=== PATIENT | female | born 1955 | race Caucasian/White ===

== ENCOUNTER → 2016-12-14 | Outpatient (CLI) | payer BC ==
--- NOTE | 2016-12-17 11:49 | MM ---
Reason for exam: screening (asymptomatic). Last mammogram was performed 1 year ago. History: Patient is postmenopausal. Family history of breast cancer in paternal cousin at age 49. Took hormonal contraceptives for 10 years beginning at age 25. Physical Findings: A clinical breast exam by your physician is recommended on an annual basis and results should be correlated with mammographic findings. MG 3D Screening Mammo W/Cad Bilateral CC and MLO view(s) were taken. Prior study comparison: December 17, 2015, bilateral MG screening mammo w CAD. October 10, 2014, bilateral MG screening mammo w CAD. The breast tissue is heterogeneously dense. This may lower the sensitivity of mammography. There is no discrete abnormality. No significant changes when compared with prior studies. ASSESSMENT: Negative, BI-RAD 1 RECOMMENDATION: Routine screening mammogram of both breasts in 1 year.
== END | disposition home or self-care (01) ==
LOC: RADMAMWWP 08:34
PROVIDERS: ATTEND Obstetrics & Gynecology
DX: Z12.31 Encounter for screening mammogram for malignant neoplasm of breast (principal)
CPT/HCPCS: 77063; G0202

== ENCOUNTER 2017-11-17 07:46 | Day surgery (SDC) | payer BC ==
[2017-11-15 09:27] VITALS: BMI 29.9
[~2017-11-17 07:46] MED LIST: LACTATED RINGERS 1,000 ML IV SCH; LIDOCAINE 1% INJ 10MG/ML (20 ML MDV) ONE; PROPOFOL 10 MG/ML 20 ML VIAL IV ONE
[2017-11-17 08:21] VITALS: RESP 16; TEMP 96.9
[2017-11-17] MEDS ORDERED: LIDOCAINE 1% 20 ML VIAL (10MG/ML) FOR IV START INTRADERMA ONE (08:27)
--- NOTE | 2017-11-17 09:30 | P.PCN ---
Date of Procedure: 11/17/17 Procedure(s) Performed: BRIEF HISTORY: Patient is a 62-year-old pleasant white female, scheduled for an elective colonoscopy as a part of screening for colorectal neoplasia. PROCEDURE PERFORMED: Colonoscopy. PREOPERATIVE DIAGNOSIS: Screening for colon cancer. IV sedation per Anesthesia. PROCEDURE: After informed consent was obtained, the patient, was brought into the endoscopy unit. IV sedation was administered by Anesthesia under continuous monitoring. Digital rectal examination was normal. Initially the Olympus CF- 160 flexible video colonoscope was then inserted in the rectum, gradually advanced into the cecum without any difficulty. Careful examination was performed as the scope was gradually being withdrawn. Ileocecal valve and the appendiceal orifice were visualized and appeared normal. Prep was excellent. Mucosa of the cecum, ascending colon, transverse colon, descending colon, sigmoid colon, and rectum appeared normal. Retroflexion was performed in the rectum and no lesions were seen. The patient tolerated the procedure well. IMPRESSION: Normal-appearing colon from rectum to cecum with no evidence of colorectal neoplasia. RECOMMENDATIONS: Findings of this examination were discussed with the patient as well as her family. She was advised to have a repeat screening colonoscopy in 10 years.
[2017-11-17 09:39] VITALS: BP 104/70
[2017-11-17 10:03] VITALS: PULSE 54
== END 2017-11-17 10:22 | disposition home or self-care (01) ==
LOC: ORWHC2ENDO 07:46
PROVIDERS: ATTEND Internal Medicine Gastroenterology
DX: Z12.11 Encounter for screening for malignant neoplasm of colon (principal); K21.9 Gastro-esophageal reflux disease without esophagitis; Z88.0 Allergy status to penicillin; Z79.899 Other long term (current) drug therapy; Z87.891 Personal history of nicotine dependence
CPT/HCPCS: G0121; J2001; J2704

== ENCOUNTER → 2017-12-22 | Outpatient (CLI) | payer BC ==
--- NOTE | 2017-12-23 14:49 | MM ---
Reason for exam: screening (asymptomatic). Last mammogram was performed 1 year ago. History: Patient is postmenopausal. Family history of breast cancer in paternal cousin at age 49. Took hormonal contraceptives for 10 years beginning at age 25. Physical Findings: A clinical breast exam by your physician is recommended on an annual basis and results should be correlated with mammographic findings. MG 3D Screening Mammo W/Cad Bilateral CC and MLO view(s) were taken. Prior study comparison: December 14, 2016, bilateral MG 3d screening mammo w/cad. December 17, 2015, bilateral MG screening mammo w CAD. The breast tissue is heterogeneously dense. This may lower the sensitivity of mammography. There is no discrete abnormality. No significant changes when compared with prior studies. ASSESSMENT: Negative, BI-RAD 1 RECOMMENDATION: Routine screening mammogram of both breasts in 1 year.
== END | disposition home or self-care (01) ==
LOC: RADMAMWWP 14:08
PROVIDERS: ATTEND Obstetrics & Gynecology
DX: Z12.31 Encounter for screening mammogram for malignant neoplasm of breast (principal); Z78.0 Asymptomatic menopausal state
CPT/HCPCS: 77063; 77067

== ENCOUNTER → 2017-12-28 | Outpatient (CLI) | payer BC ==
--- NOTE | 2017-12-28 16:36 | BD ---
EXAMINATION TYPE: Axial Bone Density DATE OF EXAM: 12/28/2017 COMPARISON: NONE CLINICAL HISTORY: Height: 62.5 Weight: 173.5 FRAX RISK QUESTIONS: Alcohol (3 or more units per day): no Family History (Parent hip fracture): no Glucocorticoids (More than 3mos): no (Ex: prednisone, prednisolone, methylprednisolone, dexamethasone, and hydrocortisone). History of Fracture in Adulthood: yes Secondary Osteoporosis: 1. Type 1 Diabetes: no 2. Hyperthyroidism: no 3. Menopause before 45: no 4. Malnutrition: no 5. Chronic liver disease: no Rheumatoid Arthritis: no Current Tobacco Use: no RISK FACTORS HISTORY OF: History of Wrist Fracture: bilateral wrist When: 2016 Family History of Osteoporosis: no Active: yes Diet low in dairy products/other sources of calcium: no Postmenopausal woman: age 59 MEDICATIONS: prevacid, flonase as needed Additional History: EXAM MEASUREMENTS: Bone mineral densitometry was performed using the Jamplify System. Bone mineral density as measured about the Lumbar spine is: ----- L1-L4(G/cm2): 1.174 T Score Values are as follows: ----- L2: -0.2 ----- L3: 0.3 ----- L4: -0.2 ----- L1-L4: -0.1 Bone mineral density has: decreased -0.5 % since study of: 06.04.2014 Bone mineral density about the R hip (g/cm2): 0.962 Bone mineral density about the L hip (g/cm2): 0.821 T Score values are as follows: -----R Neck: -0.5 -----L Neck: -1.6 -----R Total: -0.3 -----L Total: -1.0 Bone mineral density has: decreased -3.3 % since study of: 06.04.2014 IMPRESSION: Osteopenia (T Score between -2.5 and -1). There is slightly increased risk of fracture and the patient may be considered for treatment. Re-Screen 2-5 years. NOTE: T-SCORE=SD OF THE YOUNG ADULT MEAN.
== END | disposition home or self-care (01) ==
LOC: RADBDWWP 12:20
PROVIDERS: ATTEND Obstetrics & Gynecology
DX: Z13.820 Encounter for screening for osteoporosis (principal); M85.80 Other specified disorders of bone density and structure, unspecified site; Z78.0 Asymptomatic menopausal state
CPT/HCPCS: 77080

== ENCOUNTER → 2018-07-25 | Outpatient (CLI) | payer BC ==
[2018-07-25 15:12] LABS: Appearance,Urine Clear (Clear); Bilirubin,Urine Negative (Negative); Blood,Urine Negative (Negative); Color,Urine Light Yellow; Glucose,Urine (UA) Negative (Negative); Ketones,Urine Negative (Negative); Leukocyte Esterase,Urine Negative (Negative); Nitrite,Urine Negative (Negative); Protein,Urine Negative (Negative); Specific Gravity,Urine 1.008 (1.001-1.035); Urobilinogen,Urine <2.0 mg/dL (<2.0)
[2018-07-25 15:33] LABS: HCT 40.3 % (34.0-46.0); HGB 12.8 gm/dL (11.4-16.0); MCH 29.2 pg (25.0-35.0); MCHC 31.8 g/dL (31.0-37.0); MCV 91.8 fL (80.0-100.0); Mean Platelet Volume 8.8; Platelet Count 235 k/uL (150-450); RBC 4.39 m/uL (3.80-5.40); RDW 13.2 % (11.5-15.5); WBC 7.9 k/uL (3.8-10.6)
[2018-07-25 15:40] LABS: INR 0.9 (<1.2); Partial Thromboplastin Time 25.2 sec (22.0-30.0); Prothrombin Time 9.7 sec (9.0-12.0)
[2018-07-25 15:47] LABS: ALT 33 U/L (9-52); AST 19 U/L (14-36); Albumin 4.1 g/dL (3.5-5.0); Alkaline Phosphatase 73 U/L (38-126); Anion Gap 10 mmol/L; Blood Urea Nitrogen 18 mg/dL (7-17); Calcium 9.5 mg/dL (8.4-10.2); Carbon Dioxide 23 mmol/L (22-30); Chloride 108 mmol/L (98-107); Glucose 142 mg/dL (74-99); Sodium 141 mmol/L (137-145); Total Bilirubin 0.3 mg/dL (0.2-1.3); Total Protein 6.5 g/dL (6.3-8.2)
== END | disposition home or self-care (01) ==
LOC: LABPAT 14:12
PROVIDERS: ATTEND Orthopaedic Surgery
DX: Z01.810 Encounter for preprocedural cardiovascular examination (principal); Z01.812 Encounter for preprocedural laboratory examination
CPT/HCPCS: 80053; 81003; 85027; 85610; 85730; 87070; 93005

== ENCOUNTER 2018-08-08 07:11 | Inpatient (IN) | payer BC ==
[~2018-08-08 07:11] MED LIST changes: +ACETAMINOPHEN TAB 500 MG TAB PO ONE; +DEXAMETHASONE SOD PHOSPHATE 10 MG/ML 1 ML VIAL IV ONE; +HYDROmorphone 0.5 MG/0.5 ML SYRINGE IVP PRN; -LACTATED RINGERS 1,000 ML IV SCH; +LIDOCAINE 1% 20 ML VIAL (10MG/ML) FOR IV START INTRADERMA PRN; -LIDOCAINE 1% INJ 10MG/ML (20 ML MDV) ONE; +MELOXICAM 7.5 MG TAB PO ONE; +MIDAZOLAM (PF) 2 MG/2 ML VIAL IV PRN; +ONDANSETRON 4 MG/2 ML VIAL IVP ONE; -PROPOFOL 10 MG/ML 20 ML VIAL IV ONE; +ROPIVACAINE 246.25 MG, EPINEPHrine 0.5 MG, KETOROLAC 30 MG, cloNIDine HCL/PF 80 MCG, WA... MISCELLANE ONE; +SCOPOLAMINE 1.5MG/72HR PATCH TRANSDERM ONE; +TRANEXAMIC ACID 1,000 MG in SODIUM CHLORIDE 0.9% 100 ML IVPB ONE; +fentaNYL (PF) 50 MCG/ML 2 ML AMP IV PRN
[2018-08-08] MEDS: LACTATED RINGERS 1,000 ML IV SCH ×2 (08:09→13:08)
[2018-08-08] MEDS ORDERED: ROPIVACAINE 1,100 MG, SODIUM CHLORIDE 0.9% 500 ML 330 ML MISCELLANE PRN ×2 (08:27)
--- NOTE | 2018-08-08 08:27 | P.ONQ ---
Anesthesiology Proc Note - PNB - Peripheral Nerve Block Performed Left Adductor Canal Infusion Time Out Performed: Yes Procedure Start Time: 08:11 Procedure Stop Time: : Indication: Acute Post-Operative Pain, Requested by physician (Dr South) Sedation Type: Sedate with meaningful contact maintained Preparation: Sterile Dressing Position: Supine Catheter: Indwelling Needle Types: On-Q Needle Size: 50mm (2") Needle Gauge: 20 Technique: Ultrasound (Image saved on chart) Injectate: 0.5% Ropivacaine (see comment for volume) (30 mls) Blood Aspirated: No Pain Paresthesia on Injection Noted: No Resistance on Injection: Normal Events: Uneventful and Well Tolerated
--- NOTE | 2018-08-08 08:37 | P.OP ---
Date of Procedure: 08/08/18 Preoperative Diagnosis: Severe osteoarthritis right knee Postoperative Diagnosis: Severe osteoarthritis right knee Procedure(s) Performed: Right total knee arthroplasty Implants: Crews and Nephew Journey II CR Oxinium cruciate retaining femoral component size 6, right Crews & Nephew Journey right nonporous tibial baseplate size 5 Crews & Nephew Journey II, XLPE Deep Dished articular insert, size 9 mm, Size 5- 6 right Crews [employer] Nephew Journey BCS resurfacing oval patellar component, 29 mm All components were cemented using Palacos R bone cement.. The articulation is Oxinium on polyethylene. Anesthesia: spinal Surgeon: Benson South Early Morning Babysitter #1: Maryann Aguiar Estimated Blood Loss (ml): 25 Pathology: other (Bone and cartilage) Condition: stable Disposition: PACU Indications for Procedure: After failure of conservative treatment we discussed the surgical and nonsurgical treatment options at length. Patient wishes to proceed with a total knee arthroplasty. Complications specific to this procedure were discussed at length, including but not limited to infection, bleeding, stiffness, and nerve injury. Patient is aware of all these complications and informed consent was obtained Operative Findings: The operative findings are consistent with severe osteoarthritis of the right knee Description of Procedure: Patient was seen in the preoperative area consent was reviewed and operative site was marked with a skin marker. An adductor canal pain catheter was placed by anesthesia in the preoperative area. Patient was then brought to the operat ing room and given preoperative antibiotics intravenously. A spinal anesthetic was administered by the anesthesia department. A tourniquet was placed on the upper thigh and the lower extremity was prepped and draped in usual sterile fashion. A gram of transexamic acid was given. A universal timeout was then performed which confirmed the patient's name, surgical site, ALLERGIES, and consent. The lower extremity was then exsanguinated and tourniquet was inflated to 250 mmHg. A standard and anterior midline approach to the knee was performed. The skin and subcutaneous tissue was dissected down to the patellar tendon. A medial parapatellar arthrotomy was then performed. The knee was then extended, the patellar was everted, and the knee was again flexed. Anterior horns of both menisci were excised, and a release was performed to the posterior medial aspect of the knee. On gross visual inspection, there was complete loss of articular cartilage in the medial and patellofemoral joint spaces. There was also significant cartilage damage in the lateral compartment. There were multiple periarticular osteophytes which were then removed with a Ronguer. The femoral canal was then opened with the appropriate drill, and the intramedullary femoral cutting guide was then placed and set for 5 of valgus. The distal femoral cutting block was then pinned in place, and the distal femur was then cut. The cutting block was then removed and the cut was checked for flatness. Next, the sizing guide was then placed and set for 3 external rotation based off of the epicondylar axis and Whitesides line. After the femur was sized, the appropriate 4-in-1 cutting block was then pinned in place. The anterior condyles were cut without notching. The posterior and chamfer cuts were perfor med while protecting the collateral ligaments. The cutting block was then removed, and the femoral canal was plugged with autologous bone. Attention was then directed to the tibia. The remaining ACL was removed with a Ronguer, and the tibia was then gently subluxed forward with a large bent knee retractor. Any remaining menisci was excised. The posterior lateral corner was cauterized in order to cauterize the lateral geniculate artery. The extra medullary tibial cutting guide was then placed, set for the appropriate rotation, slope, and depth of resection. The proximal tibia cutting guide was then pinned in place. Proximal tibia was then cut and sized. Next trials were then placed with the appropriate-sized insert. The knee was able to fully extend and flex to 130 and was stable throughout all range of motion. The knee was then extended, patella everted. Patella was then measured, and then using an osteotomy guide, the patella was cut at the appropriate level. The patella was then measured and drilled and the patella trial was then placed. The knee was then taken through range of motion with the patella trial and the patella tracked normally. The knee was then extended patella trial was then removed and the patella was everted. Knee was then flexed and lug holes were drilled through the femoral trial and the femoral trial was then removed. The tibial was then exposed, and the tibial broach guide was then pinned in place after it was set for the appropriate rotation to allow for the most coverage without overhang. The tibia was then reamed and broached. The cut surfaces of bone were then irrigated with pulsatile lavage. The posterior structures were injected with the ropivacaine solution. The knee was also irrigated with Irrisept solution. The components were then opened, the cement was mixed, and the components were then cemented in place. The cement was allowed to harden with the knee in full extension. While the cement was hardening, the remaining soft tissues were then injected with a ropivacaine solution, which consisted of 246.25 mg of ropivacaine, 0.5 mg of epinephrine, 30 mg of Toradol, 80 g of clonidine, and 48.45 mL of sterile water, for a total of 100 mL of fluid injected. After the cemented hardened. The tourniquet was released, and hemostasis was obtained. A second gram of transexamic acid was given. The knee was again irrigated. The knee was again taken through range of motion and found to be stable throughout all range of motion of 0-130, and the patella tracked normally. The fascia was then closed with #2 strata fix suture. The subcutaneous tissue was closed with 3-0 Vicryl and 3-0 strata fix. Dermabond glue was used for the skin and placed with the knee in flexion. The patient was placed in a sterile silver dressing. Patient was then transferred to recovery room in stable condition. The assistant branch manager BRADLEY Sun was required due the complexity surgery and the need for a skilled bilingual administrative assistant. She assisted in positioning, draping, retraction, and closure of the wound.
[2018-08-08] MEDS ORDERED: BISACODYL 10 MG SUPP RECTAL PRN (08:57)
[2018-08-08] MEDS ORDERED: NA PHOS,M-B/NA PHOS,DI-BA 133 ML ENEMA RECTAL PRN (08:57)
[2018-08-08] MEDS ORDERED: NALOXONE 0.4 MG/ML 1 ML VIAL IV PRN (08:57)
[2018-08-08] MEDS ORDERED: HYDROmorphone 1 MG/ML 1 ML SYRINGE IVP PRN (08:57)
[2018-08-08] MEDS ORDERED: DIAZEPAM 5 MG TAB PO PRN (08:57)
[2018-08-08] MEDS ORDERED: HYDROmorphone 0.5 MG/0.5 ML SYRINGE IVP PRN ×2 (08:57)
[2018-08-08] MEDS ORDERED: ONDANSETRON 4 MG/2 ML VIAL IVP PRN (08:57)
[2018-08-08] MEDS ORDERED: MAGNESIUM HYDROXIDE 2,400 MG/10 ML CUP PO PRN (08:57)
[2018-08-08] MEDS ORDERED: hydrOXYzine PAMOATE 25 MG CAP PO PRN (08:57)
[2018-08-08] MEDS ORDERED: HYDROcodone/APAP 5-325MG 1 EACH TAB PO PRN (08:57)
[2018-08-08] MEDS ORDERED: fentaNYL (PF) 50 MCG/ML 2 ML AMP ONE (09:32)
[2018-08-08] MEDS ORDERED: SODIUM CHLORIDE 0.9% 100 ML BAG ONE (09:32)
[2018-08-08] MEDS ORDERED: diphenhydrAMINE 50 MG/ML 1 ML VIAL ONE (09:32)
[2018-08-08] MEDS ORDERED: MIDAZOLAM 2 MG/2 ML VIAL ONE (09:32)
[2018-08-08] MEDS ORDERED: TRANEXAMIC ACID 1,000 MG/10 ML VIAL ONE (09:32)
[2018-08-08] MEDS: CLINDAMYCIN 900 MG in DEXTROSE 5% IN WATER 50 ML IVPB ONE ×4 (09:40→13:07)
--- NOTE | 2018-08-08 11:01 | P.OP ---
Date of Procedure: 08/08/18 Preoperative Diagnosis: Severe osteoarthritis left knee Postoperative Diagnosis: Severe osteoarthritis left knee Procedure(s) Performed: Left total knee arthroplasty Implants: Crews and Nephew Journey II CR Oxinium cruciate retaining femoral component size , left Crews & Nephew Journey left nonporous tibial baseplate size 4 Crews & Nephew Journey II, XLPE Deep Dished articular insert, size 9 mm, Size 3- 4 left Crews [employer] Nephew Journey BCS resurfacing oval patellar component, 29 mm All components were cemented using Palacos R bone cement.. The articulation is Oxinium on polyethylene. Anesthesia: spinal Surgeon: Benson South Information Tech #1: Maryann Aguiar Estimated Blood Loss (ml): 25 Pathology: other (bone and cartilage) Condition: stable Disposition: PACU Indications for Procedure: After failure of conservative treatment we discussed the surgical and nonsurgical treatment options at length. Patient wishes to proceed with a total knee arthroplasty. Complications specific to this procedure were discussed at length, including but not limited to infection, bleeding, stiffness, and nerve injury. Patient is aware of all these complications and informed consent was obtained Operative Findings: The operative findings are consistent with severe osteoarthritis of the left knee Description of Procedure: Patient was seen in the preoperative area consent was reviewed and operative site was marked with a skin marker. An adductor canal pain catheter was placed by anesthesia in the preoperative area. Patient was then brought to the operating room and given preoperative antibiotics intravenously. A spinal anesthetic was administered by the anesthesia department. A tourniquet was placed on the upper thigh and the lower extremity was prepped and draped in usual sterile fashion. A gram of transexamic acid was given. A universal timeout was then performed which confirmed the patient's name, surgical site, ALLERGIES, and consent. The lower extremity was then exsanguinated and tourniquet was inflated to 250 mmHg. A standard and anterior midline approach to the knee was performed. The skin and subcutaneous tissue was dissected down to the patellar tendon. A medial parapatellar arthrotomy was then performed. The knee was then extended, the patellar was everted, and the knee was again flexed. Anterior horns of both menisci were excised, and a release was performed to the posterior medial aspect of the knee. On gross visual inspection, there was complete loss of articular cartilage in the medial and patellofemoral joint spaces. There was also significant cartilage damage in the lateral compartment. There were multiple periarticular osteophytes which were then removed with a Ronguer. The femoral canal was then opened with the appropriate drill, and the intramedullary femoral cutting guide was then placed and set for 5 of valgus. The distal femoral cutting block was then pinned in place, and the distal femur was then cut. The cutting block was then removed and the cut was checked for flatness. Next, the sizing guide was then placed and set for 3 external rotation based off of the epicondylar axis and Whitesides line. After the femur was sized, the appropriate 4-in-1 cutting block was then pinned in place. The anterior condyles were cut without notching. The posterior and chamfer cuts were performed while protecting the collateral ligaments. The cutting block was then removed, and the femoral canal was plugged with autologous bone. Attention was then directed to the tibia. The remaining ACL was removed with a Ronguer, and the tibia was then gently subluxed forward with a large bent knee retractor. Any remaining menisci was excised. The posterior lateral corner was cauterized in order to cauterize the lateral geniculate artery. The extra medullary tibial cutting guide was then placed, set for the appropriate rotation, slope, and depth of resection. The proximal tibia cutting guide was t hen pinned in place. Proximal tibia was then cut and sized. Next trials were then placed with the appropriate-sized insert. The knee was able to fully extend and flex to 130 and was stable throughout all range of motion. The knee was then extended, patella everted. Patella was then measured, and then using an osteotomy guide, the patella was cut at the appropriate level. The patella was then measured and drilled and the patella trial was then placed. The knee was then taken through range of motion with the patella trial and the patella tracked normally. The knee was then extended patella trial was then removed and the patella was everted. Knee was then flexed and lug holes were drilled through the femoral trial and the femoral trial was then removed. The tibial was then exposed, and the tibial broach guide was then pinned in place after it was set for the appropriate rotation to allow for the most coverage without overhang. The tibia was then reamed and broached. The cut surfaces of bone were then irrigated with pulsatile lavage. The posterior structures were injected with the ropivacaine solution. The knee was also irrigated with Irrisept solution. The components were then opened, the cement was mixed, and the components were then cemented in place. The cement was allowed to harden with the knee in full extension. While the cement was hardening, the remaining soft tissues were then injected with a ropivacaine solution, which consisted of 246.25 mg of ropivacaine, 0.5 mg of epinephrine, 30 mg of Toradol, 80 g of clonidine, and 48.45 mL of sterile water, for a total of 100 mL of fluid injected. After the cemented hardened. The tourniquet was released, and hemostasis was obtained. A second gram of transexamic acid was given. The knee was again irrigated. The knee was again taken through range of motion and found to be stable throughout all range of motion of 0-130, and the patella tracked normally. The fascia was then closed with #2 strata fix suture. The subcutaneous tissue was closed with 3-0 Vicryl and 3-0 strata fix. Dermabond glue was used for the skin and placed with the knee in flexion. The patient was placed in a sterile silver dressing. Patient was then transferred to recovery room in stable condition. The assistant fitness manager BRADLEY Sun was required due the complexity surgery and the need for a skilled neurosurgical nurse practitioner. She assisted in positioning, draping, retraction, and closure of the wound.
[2018-08-08] MEDS ORDERED: LACTATED RINGERS 1,000 ML IV ONE (11:05)
--- NOTE | 2018-08-08 11:55 | XR ---
EXAMINATION TYPE: XR knee limited LT DATE OF EXAM: 08/08/2018 COMPARISON: NONE TECHNIQUE: Two views submitted HISTORY: Post op FINDINGS: There is a prosthetic knee in near anatomic alignment. There is soft tissue edema and emphysema. IMPRESSION: 1. Postoperative change. Appears in near-anatomic alignment
[2018-08-08] MEDS: ASPIRIN 325 MG TAB PO SCH ×2 (13:08→21:14)
[2018-08-08] MEDS: MELOXICAM 7.5 MG TAB PO SCH (13:09)
[2018-08-08 13:17] VITALS: BMI 32.9
[2018-08-08] MEDS: CLINDAMYCIN 900 MG in DEXTROSE 5% IN WATER 50 ML IVPB SCH ×4 (15:47→21:17)
[2018-08-08] MEDS: SODIUM CHLORIDE 0.9% 1,000 ML IV SCH (15:48)
[2018-08-08] MEDS ORDERED: MELATONIN 1 MG TAB PO PRN (16:24)
--- NOTE | 2018-08-08 16:25 | P.CONS ---
History of Present Illness - Reason for Consult preoperative consultation management - History of Present Illness 63-year-old pleasant female was admitted the second for left knee arthroplasty excessive underwent surgery didn't pass gas yet did not move her bowel yet patient doesn't have any drain the left knee area wrapped with Dm bandage and surgical packing. Denied any pain in that area, denied any fever chills nausea vomiting dysuria patient doesn't have any full At this time. Patient is postoperative day 0 today. Review of Systems REVIEW OF SYSTEMS: CONSTITUTIONAL: No fever, no malaise, no fatigue. HEENT: No recent visual problems or hearing problems. Denied any sore throat. CARDIOVASCULAR: No chest pain, orthopnea, PND, no palpitations, no syncope. PULMONARY: No shortness of breath, no cough, no hemoptysis. GASTROINTESTINAL: No diarrhea, no nausea, no vomiting, no abdominal pain. NEUROLOGICAL: No headaches, no weakness, no numbness. HEMATOLOGICAL: Denies any bleeding or petechiae. GENITOURINARY: Denies any burning micturition, frequency, or urgency. MUSCULOSKELETAL/RHEUMATOLOGICAL: Denies any joint pain, swelling, or any muscle pain. ENDOCRINE: Denies any polyuria or polydipsia. The rest of the 14-point review of systems is negative. Past Medical History Past Medical History: GERD/Reflux, Osteoarthritis (OA) Additional Past Medical History / Comment(s): VARICOSE VEINS History of Any Multi-Drug Resistant Organisms: None Reported Past Surgical History: Orthopedic Surgery Additional Past Surgical History / Comment(s): lt meniscus repair,colonoscopies. Past Anesthesia/Blood Transfusion Reactions: No Reported Reaction, Family History of Problems w/ Anesthesia Additional Past Anesthesia/Blood Transfusion Reaction / Comm: SON-COMBATIVE Past Psychological History: Depression Additional Psychological History / Comment(s): RECENT DEPRESSION AFTER A Smoking Status: Former smoker Past Alcohol Use History: Occasional Additional Past Alcohol Use History / Comment(s): quit smoking ,started smoking at age 16, 1 ppd Past Drug Use History: None Reported - Past Family History Mother Family Medical History: No Reported History Medications and Allergies Home Medications Medication Instructions Recorded Confirmed Type Acetaminophen-Codeine 300-30mg 1 tab PO DIRECTED PRN 07/26/18 08/08/18 History [Tylenol w/codeine #3] Calcium Carbonate/Vitamin D3 1 tab PO DAILY 07/26/18 08/08/18 History [Calcium 600-Vit D3 400 Caplet] Cyanocobalamin (Vitamin B-12) 1,000 mcg PO DAILY 07/26/18 08/08/18 History [Vitamin B-12] Glucosam/[place]mund-Msm1/C/[place]/Bosw 1 tab PO DAILY 07/26/18 08/08/18 History [Glucosamine-Chondroitin Tablet] Lansoprazole [Prevacid] 30 mg PO DAILY 07/26/18 08/08/18 History Lutein 10 mg PO DAILY 07/26/18 08/08/18 History Melatonin 2 mg PO HS PRN 07/26/18 08/08/18 History Multivitamins, Thera [Multivitamin 1 tab PO DAILY 07/26/18 08/08/18 History (formulary)] Uc-11 Collagen 1 tab PO DAILY 07/26/18 08/08/18 History Vitamin C With Zinc 1 tab PO DAILY 07/26/18 08/08/18 History Estradiol Cream [Estrace Cream 1 gm VAGINAL DIRECTED 08/08/18 08/08/18 History 0.01%] Allergies Allergy/AdvReac Type Severity Reaction Status Date / Time animal dander Allergy Unknown Headache, Verified 08/08/18 09:04 Runny Nose mold Allergy Unknown Headache, Verified 08/08/18 09:04 Runny nose amoxicillin Allergy DIZZY, DID Verified 08/08/18 09:04 NOT FEEL RIGHT. Penicillins Allergy Unknown Verified 08/08/18 09:04 Physical Exam Vitals: Vital Signs Temp Pulse Pulse Resp BP Pulse Ox 08/08/18 12:30 70 16 101/57 96 08/08/18 12:15 64 18 101/58 98 08/08/18 12:00 67 18 98/53 94 L 08/08/18 11:45 71 16 99/57 95 08/08/18 11:29 97.0 F L 71 16 105/58 94 L 08/08/18 07:29 97.7 F 66 16 107/59 98 Intake and Output 08/08/18 08/08/18 08/08/18 06:59 14:59 22:59 Intake Total 696 Output Total 25 Balance 671 Intake: IV 556 Intake, IV Titration 140 Amount Sodium Chloride 0.9% 1, 140 000 ml @ 70 mls/hr IV . [id number] Rx#:[id number] Output: Estimated Blood Loss 25 PHYSICAL EXAMINATION: GENERAL: The patient is alert and oriented x3, not in any acute distress. Well developed, well nourished. HEENT: Pupils are round and equally reacting to light. EOMI. No scleral icterus. No conjunctival pallor. Normocephalic, atraumatic. No pharyngeal erythema. No thyromegaly. CARDIOVASCULAR: S1 and S2 present. No murmurs, rubs, or gallops. PULMONARY: Chest is clear to auscultation, no wheezing or crackles. ABDOMEN: Soft, nontender, nondistended, normoactive bowel sounds. No palpable organomegaly. MUSCULOSKELETAL: deferred to orthopedic surgery EXTREMITIES: No cyanosis, clubbing, or pedal edema. NEUROLOGICAL: Gross neurological examination did not reveal any focal deficits. SKIN: No rashes. Assessment and Plan Plan: -left knee arthroplasty: Postoperative day 0 continue present medications and symptomatic spirometry, patient is on aspirin for DVT prophylaxis -gastroesophageal reflux disease continue with the proton pump inhibitor. No further recommendations from medical perspective
[2018-08-08] MEDS: PANTOPRAZOLE 40 MG TABLET PO SCH (16:34)
[2018-08-08] MEDS ORDERED: SENNOSIDES-DOCUSATE SODIUM 1 EACH TAB PO SCH (21:00)
[2018-08-08] MEDS: HYDROcodone/APAP 5-325MG 1 EACH TAB PO PRN (21:14)
[2018-08-09] MEDS: LACTATED RINGERS 1,000 ML IV SCH ×2 (01:01→01:02)
[2018-08-09] MEDS: SODIUM CHLORIDE 0.9% 1,000 ML IV SCH (01:15)
[2018-08-09] MEDS: HYDROcodone/APAP 5-325MG 1 EACH TAB PO PRN ×3 (02:37→13:38)
--- NOTE | 2018-08-09 05:54 | P.PN ---
Progress Note - Text Progress Note Date: 08/09/18 63 yo female status post left total knee replacement. Patient received adductor canal catheter. Ropivacaine 0.2% at 8 mls/hr. Patient lying in bed comfortably. VAS score of 2/10, no complains overnight. Assessment and plan: patient will be sent home with the adductor canal pump. Adequate pain control.
[2018-08-09 07:08] LABS: Basophils % (A) 0 %; Eosinophils # (A) 0.1 k/uL (0-0.7); Eosinophils % (A) 1 %; HCT 35.3 % (34.0-46.0); HGB 11.7 gm/dL (11.4-16.0); Lymphocytes # (A) 1.5 k/uL (1.0-4.8); Lymphocytes % (A) 16 %; MCH 30.5 pg (25.0-35.0); MCHC 33.2 g/dL (31.0-37.0); MCV 91.6 fL (80.0-100.0); Mean Platelet Volume 8.2; Monocytes # (A) 0.8 k/uL (0-1.0); Monocytes % (A) 8 %; Neutrophils % (A) 74 %; Platelet Count 216 k/uL (150-450); RBC 3.86 m/uL (3.80-5.40); RDW 13.6 % (11.5-15.5); WBC 9.5 k/uL (3.8-10.6)
[2018-08-09] MEDS: PANTOPRAZOLE 40 MG TABLET PO SCH (08:24)
[2018-08-09] MEDS: MELOXICAM 7.5 MG TAB PO SCH (08:24)
[2018-08-09] MEDS: ASPIRIN 325 MG TAB PO SCH (08:24)
[2018-08-09 08:33] VITALS: BP 113/70; PULSE 78; RESP 12; TEMP 98
--- NOTE | 2018-08-09 09:46 | P.DS ---
Providers Date of admission: 08/08/18 07:11 Expected date of discharge: 08/09/18 Attending physician: Benson South Consults: 08/08/18 08:57 Consult Physician Routine Consulting Provider: Jen Alves Consult Reason/Comments: medical management Do you want consulting provider notified?: Yes Primary care physician: Sussy Cortez - Discharge Diagnosis(es) (1) S/P total knee arthroplasty Current Visit: Yes Status: Acute (2) Osteoarthritis of left knee Current Visit: Yes Status: Acute Hospital Course: This is a 63-year-old female with known history of degenerative arthritis of the left knee. The patient presents for evaluation. After discussion and consideration patient elects to proceed with total knee arthroplasty. The patient is seen preoperatively by Dr. South and medically cleared for surgery by their primary care physician. Patient is admitted to [facility] on 08/08/2018 for total knee arthroplasty. The procedures performed without complication or sequelae. The patient is doing well postoperatively. Labs and vital signs are stable on day of discharge. On day of discharge patient's knee incision is healing well. There is minimal erythema. There is no drainage noted at this time. There is minimal soft tissue swelling to the knee. Patient has full foot and ankle motion without difficulty or pain. Calf is soft and nontender to palpation. Neurovascular status to the left lower extremity is intact. Patient is discharged home in good condition. Opioid start talking form is reviewed and signed at patient bedside. Please see med rec for accurate list of home medications. Plan - Discharge Summary Discharge Rx Participant: No New Discharge Prescriptions: New Aspirin 325 mg PO BID #60 tab HYDROcodone/APAP 5-325MG [[place] 5-325] 1 - 2 tab PO Q6HR PRN #56 tab PRN Reason: Pain Sennosides [Senokot] 1 tab PO BID #60 tablet No Action Multivitamins, Thera [Multivitamin (formulary)] 1 tab PO DAILY Lansoprazole [Prevacid] 30 mg PO DAILY Acetaminophen-Codeine 300-30mg [Tylenol w/codeine #3] 1 tab PO DIRECTED PRN PRN Reason: Pain Vitamin C With Zinc 1 tab PO DAILY Glucosam/Edmund-Msm1/C/[place]/Bosw [Glucosamine-Chondroitin Tablet] 1 tab PO DAILY Cyanocobalamin (Vitamin B-12) [Vitamin B-12] 1,000 mcg PO DAILY Calcium Carbonate/Vitamin D3 [Calcium 600-Vit D3 400 Caplet] 1 tab PO DAILY Melatonin 2 mg PO HS PRN PRN Reason: Insomnia Lutein 10 mg PO DAILY Uc-11 Collagen 1 tab PO DAILY Estradiol Cream [Estrace Cream 0.01%] 1 gm VAGINAL DIRECTED Discharge Medication List Acetaminophen-Codeine 300-30mg [Tylenol w/codeine #3] 1 tab PO DIRECTED PRN 07/26/18 [History] Calcium Carbonate/Vitamin D3 [Calcium 600-Vit D3 400 Caplet] 1 tab PO DAILY 07/26/18 [History] Cyanocobalamin (Vitamin B-12) [Vitamin B-12] 1,000 mcg PO DAILY 07/26/18 [History] Glucosam/Edmund-Msm1/C/[place]/Bosw [Glucosamine-Chondroitin Tablet] 1 tab PO DAILY 07/26/18 [History] Lansoprazole [Prevacid] 30 mg PO DAILY 07/26/18 [History] Lutein 10 mg PO DAILY 07/26/18 [History] Melatonin 2 mg PO HS PRN 07/26/18 [History] Multivitamins, Thera [Multivitamin (formulary)] 1 tab PO DAILY 07/26/18 [History] Uc-11 Collagen 1 tab PO DAILY 07/26/18 [History] Vitamin C With Zinc 1 tab PO DAILY 07/26/18 [History] Estradiol Cream [Estrace Cream 0.01%] 1 gm VAGINAL DIRECTED 08/08/18 [History] Aspirin 325 mg PO BID #60 tab 08/09/18 [Rx] HYDROcodone/APAP 5-325MG [[place] 5-325] 1 - 2 tab PO Q6HR PRN #56 tab 08/09/18 [Rx] Sennosides [Senokot] 1 tab PO BID #60 tablet 08/09/18 [Rx] Follow up Appointment(s)/Referral(s): Benson South DO [Doctor of Osteopathic Medicine] - 2 Weeks Activity/Diet/Wound Care/Special Instructions: Weightbearing as tolerated with a walker. CPM 5-6h daily. Leave dressing intact. May be removed by home care nurse or by patient in 10 days. May shower with dressing on. Please follow up with [facility] and call with any questions or concerns, . Discharge Disposition: HOME WITH HOME HEALTH SERVICES
== END 2018-08-09 13:44 | disposition home health service (06) | DRG 470 ==
LOC: 2ORMAIN 07:11 → 4SSUR 11:29
PROVIDERS: ADMIT Orthopaedic Surgery; ATTEND Orthopaedic Surgery
PROC: 0SRD069 Replacement of Left Knee Joint with Oxidized Zirconium on Polyethylene Synthetic Substitute, Cemented, Open Approach (ICD-10-PCS; principal; 2018-08-08 09:20)
DX: M17.12 Unilateral primary osteoarthritis, left knee (principal); K21.9 Gastro-esophageal reflux disease without esophagitis; Z87.891 Personal history of nicotine dependence; Z79.899 Other long term (current) drug therapy; Z88.1 Allergy status to other antibiotic agents; Z88.0 Allergy status to penicillin; Z82.49 Family history of ischemic heart disease and other diseases of the circulatory system
CPT/HCPCS: 85025; 88300

== ENCOUNTER → 2019-01-20 | Outpatient (CLI) | payer BC ==
--- NOTE | 2019-01-24 08:21 | MM ---
Reason for exam: screening (asymptomatic). Last mammogram was performed 1 year and 1 month ago. History: Patient is postmenopausal. Family history of breast cancer in paternal cousin at age 49. Took hormonal contraceptives for 10 years beginning at age 25. Physical Findings: A clinical breast exam by your physician is recommended on an annual basis and results should be correlated with mammographic findings. MG 3D Screening Mammo W/Cad Bilateral CC and MLO view(s) were taken. Prior study comparison: December 22, 2017, bilateral MG 3d screening mammo w/cad. December 14, 2016, bilateral MG 3d screening mammo w/cad. The breast tissue is heterogeneously dense. This may lower the sensitivity of mammography. No significant changes when compared with prior studies. ASSESSMENT: Negative, BI-RAD 1 RECOMMENDATION: Routine screening mammogram of both breasts in 1 year.
== END | disposition home or self-care (01) ==
LOC: RADMAMWWP 09:43
PROVIDERS: ATTEND Internal Medicine
DX: Z12.31 Encounter for screening mammogram for malignant neoplasm of breast (principal)
CPT/HCPCS: 77063; 77067

== ENCOUNTER → 2020-05-29 | Outpatient (CLI) | payer BC ==
--- NOTE | 2020-05-30 07:53 | BD ---
EXAMINATION TYPE: Axial Bone Density DATE OF EXAM: 05/29/2020 COMPARISON: NONE CLINICAL HISTORY: Height: 5 FT 2 IN Weight: 173 FRAX RISK QUESTIONS: Alcohol (3 or more units per day): NO Family History (Parent hip fracture): NO Glucocorticoids (More than 3mos): NO (Ex: prednisone, prednisolone, methylprednisolone, dexamethasone, and hydrocortisone). History of Fracture in Adulthood: YES Secondary Osteoporosis: 1. Type 1 Diabetes: NO 2. Hyperthyroidism: NO 3. Menopause before 45: NO 4. Malnutrition: NO 5. Chronic liver disease: NO Rheumatoid Arthritis: NO Current Tobacco Use: NO RISK FACTORS HISTORY OF: History of Wrist Fracture: NATHAN WRIST FX When: 2016 Family History of Osteoporosis: NO Active: YES Diet low in dairy products/other sources of calcium: NO Postmenopausal woman: AGE 59 Take estrogen and/or progesterone medications: NONE Lost more than 2 inches in height since high school: NO MEDICATIONS: Additional Medications: OMEPRAZOLE Additional History: EXAM MEASUREMENTS: Bone mineral densitometry was performed using the [employer] System. Bone mineral density as measured about the Lumbar spine is: ----- L1-L4(G/cm2): 1.159 T Score Values are as follows: ----- L2: -0.4 ----- L3: 0.7 ----- L4: 0.1 ----- L1-L4: -0.2 Bone mineral density has: INCREASED 1.4 % since study of: 2018 Bone mineral density about the R hip (g/cm2): 0.894 Bone mineral density about the L hip (g/cm2): 0.786 T Score values are as follows: -----R Neck: -1.0 -----L Neck: -1.8 -----R Total: -0.6 -----L Total: -1.3 Bone mineral density has: DECREASED -4.6 % since study of: 2018 IMPRESSION: Osteopenia (T Score between -2.5 and -1). There is slightly increased risk of fracture and the patient may be considered for treatment. Re-Screen 2-5 years. NOTE: T-SCORE=SD OF THE YOUNG ADULT MEAN.
--- NOTE | 2020-06-03 09:43 | MM ---
Reason for exam: screening (asymptomatic). Last mammogram was performed 1 year and 4 months ago. History: Patient is postmenopausal. Family history of breast cancer in paternal cousin at age 49. Took hormonal contraceptives for 10 years beginning at age 25. Physical Findings: A clinical breast exam by your physician is recommended on an annual basis and results should be correlated with mammographic findings. MG 3D Screening Mammo W/Cad Bilateral CC and MLO view(s) were taken. Prior study comparison: January 20, 2019, bilateral MG 3d screening mammo w/cad. December 22, 2017, bilateral MG 3d screening mammo w/cad. The breast tissue is heterogeneously dense. This may lower the sensitivity of mammography. There is no discrete abnormality. ASSESSMENT: Negative, BI-RAD 1 RECOMMENDATION: Routine screening mammogram of both breasts in 1 year.
== END | disposition home or self-care (01) ==
LOC: RADMAMWWP 12:46
PROVIDERS: ATTEND Obstetrics & Gynecology
DX: Z12.31 Encounter for screening mammogram for malignant neoplasm of breast (principal); M85.80 Other specified disorders of bone density and structure, unspecified site
CPT/HCPCS: 77063; 77067; 77080

== ENCOUNTER 2021-02-10 21:52 | Inpatient (IN) | payer BC ==
--- NOTE | 2021-02-10 22:47 | ED ---
Lower Extremity Injury HPI - General Chief Complaint: Extremity Injury, Lower Stated Complaint: Knee Injury Time Seen by Provider: 02/10/21 21:57 Source: patient, EMS, RN notes reviewed, old records reviewed Mode of arrival: EMS Limitations: no limitations, physical limitation - History of Present Illness MD Complaint: knee injury (right) Injury: Knee: Right Type of Injury: blunt Place: home Severity: severe Worsens With: weight bearing Context: direct blow, jumping Associated Symptoms: snap/pop sensation, swelling, unable to bear weight Treatments Prior to Arrival: other (Pain control) - Related Data Home Medications Medication Instructions Recorded Confirmed Acetaminophen-Codeine 300-30mg 1 tab PO DIRECTED PRN 07/26/18 08/08/18 [Tylenol w/codeine #3] Calcium Carbonate/Vitamin D3 1 tab PO DAILY 07/26/18 08/08/18 [Calcium 600-Vit D3 400 Caplet] Cyanocobalamin (Vitamin B-12) 1,000 mcg PO DAILY 07/26/18 08/08/18 [Vitamin B-12] Glucosam/Edmund-Msm1/C/[place]/Bosw 1 tab PO DAILY 07/26/18 08/08/18 [Glucosamine-Chondroitin Tablet] Lansoprazole [Prevacid] 30 mg PO DAILY 07/26/18 08/08/18 Lutein 10 mg PO DAILY 07/26/18 08/08/18 Melatonin 2 mg PO HS PRN 07/26/18 08/08/18 Multivitamins, Thera [Multivitamin 1 tab PO DAILY 07/26/18 08/08/18 (formulary)] Uc-11 Collagen 1 tab PO DAILY 07/26/18 08/08/18 Vitamin C With Zinc 1 tab PO DAILY 07/26/18 08/08/18 Estradiol Cream [Estrace Cream 1 gm VAGINAL DIRECTED 08/08/18 08/08/18 0.01%] Previous Rx's Medication Instructions Recorded Aspirin 325 mg PO BID #60 tab 08/09/18 HYDROcodone/APAP 5-325MG [[place] 1 - 2 tab PO Q6HR PRN #56 tab 08/09/18 5-325] Sennosides [Senokot] 1 tab PO BID #60 tablet 08/09/18 Allergies Allergy/AdvReac Type Severity Reaction Status Date / Time animal dander Allergy Unknown Headache, Verified 08/08/18 09:04 Runny Nose mold Allergy Unknown Headache, Verified 08/08/18 09:04 Runny nose amoxicillin Allergy DIZZY, DID Verified 08/08/18 09:04 NOT FEEL RIGHT. Penicillins Allergy Unknown Verified 08/08/18 09:04 Review of Systems ROS Statement: Those systems with pertinent positive or pertinent negative responses have been documented in the HPI. ROS Other: All systems not noted in ROS Statement are negative. Past Medical History Past Medical History: GERD/Reflux, Skin Disorder Additional Past Medical History / Comment(s): rash rt elbow History of Any Multi-Drug Resistant Organisms: None Reported Past Surgical History: Orthopedic Surgery Additional Past Surgical History / Comment(s): lt meniscus repair,colonoscopy, L knee replacement July 2018 Past Anesthesia/Blood Transfusion Reactions: No Reported Reaction Additional Past Anesthesia/Blood Transfusion Reaction / Comment(s): SON- COMBATIVE Past Psychological History: Depression Smoking Status: Former smoker Past Alcohol Use History: Occasional Past Drug Use History: None Reported - Past Family History Mother Family Medical History: No Reported History General Exam Limitations: physical limitation General appearance: alert, in no apparent distress Head exam: Present: atraumatic, normocephalic, normal inspection Eye exam: Present: normal appearance, PERRL, EOMI. Absent: scleral icterus, conjunctival injection, periorbital swelling ENT exam: Present: normal exam, mucous membranes moist Neck exam: Present: normal inspection. Absent: tenderness, meningismus, lymphadenopathy Respiratory exam: Present: normal lung sounds bilaterally. Absent: respiratory distress, wheezes, rales, rhonchi, stridor Cardiovascular Exam: Present: regular rate, normal rhythm, normal heart sounds. Absent: systolic murmur, diastolic murmur, rubs, gallop, clicks GI/Abdominal exam: Present: soft, normal bowel sounds. Absent: distended, tenderness, guarding, rebound, rigid Extremities exam: Present: tenderness, normal capillary refill. Absent: normal inspection, full ROM, pedal edema, joint swelling, calf tenderness Back exam: Present: normal inspection Neurological exam: Present: alert, oriented X3, CN II-XII intact Psychiatric exam: Present: normal affect, normal mood Skin exam: Present: warm, dry, intact, normal color. Absent: rash Course Vital Signs 02/10/21 21:56 Temperature 98.8 F Pulse Rate 82 Respiratory 17 Rate Blood Pressure 134/79 O2 Sat by Pulse 99 Oximetry - Reevaluation(s) Reevaluation #1: 02/10/21 23:00 Medical record is reviewed Reevaluation #2: 02/10/21 23:00 Transferring paperwork is been reviewed Reevaluation #3: 02/10/21 23:00 Patient has adequate pain control currently - Consultations Consultation #1: Orthopedic transfer was initiated and accepted here at this hospital Procedures - Orthopedic Splinting/Casting Injury #1 Side: right Lower Extremity Injury Location: long leg, knee Lower Extremity Immobilizer: posterior splint Medical Decision Making - Medical Decision Making 65 female to ER status post slip and fall. Patient is accepted in transfer for fracture care and patient's primary orthopedic physician is at this hospital. Patient will be admitted for surgical evaluation and treatment. Pain is well- controlled. Patient did not have a splint on arrival in splint is placed here in the ER Disposition Clinical Impression: S/P total knee arthroplasty, Periprosthetic fracture around internal prosthetic right knee joint, Fall Disposition: ADMITTED IP TO THIS [facility] Condition: Good Is patient prescribed a controlled substance at d/c from ED?: No Referrals: Sussy Cortez MD [Primary Care Provider] - 1-2 days
[2021-02-10] MEDS ORDERED: NALOXONE 0.4 MG/ML 1 ML VIAL IV PRN (22:48)
[2021-02-10] MEDS ORDERED: LORazepam 2 MG/ML INJ IV PRN (22:48)
[2021-02-10] MEDS ORDERED: ONDANSETRON 4 MG/2 ML VIAL IVP STA (22:48)
[2021-02-10] MEDS ORDERED: MORPHINE SULFATE 4 MG/ML SYRINGE IVP STA (22:48)
[2021-02-10] MEDS ORDERED: ONDANSETRON 4 MG/2 ML VIAL IVP PRN (22:48)
[2021-02-10] MEDS: SODIUM CHLORIDE 0.9% 1,000 ML IV SCH (23:00)
--- NOTE | 2021-02-10 23:53 | CT ---
EXAMINATION TYPE: CT knee LT wo con DATE OF EXAM: 02/10/2021 COMPARISON: None HISTORY: LEFT KNEE FRACTURE CT DLP: 782.30 mGycm Automated exposure control for dose reduction was used. Images obtained from the mid femur to the mid tibia without contrast. There is a comminuted fracture of the supracondylar distal femur. There is left knee prosthesis. Ther e is significant impaction with 4.2 cm of overriding of the fragments. There is no dislocation at the knee prosthesis. The proximal tibia and fibula appear intact. Exam limited by metal artifact. IMPRESSION: Comminuted severely impacted supracondylar fracture of the distal femur. No dislocation.
[2021-02-11] MEDS: MORPHINE SULFATE 4 MG/ML SYRINGE IV PRN ×2 (03:38→08:22)
[2021-02-11 03:40] LABS: Basophils % (A) 0 %; Eosinophils % (A) 0 %; HCT 36.2 % (34.0-46.0); HGB 11.7 gm/dL (11.4-16.0); Lymphocytes # (A) 1.1 k/uL (1.0-4.8); Lymphocytes % (A) 12 %; MCH 31.1 pg (25.0-35.0); MCHC 32.4 g/dL (31.0-37.0); MCV 96.2 fL (80.0-100.0); Mean Platelet Volume 8.4; Monocytes # (A) 0.7 k/uL (0-1.0); Monocytes % (A) 8 %; Neutrophils # (A) 7.5 k/uL (1.3-7.7); Neutrophils % (A) 79 %; Platelet Count 205 k/uL (150-450); RBC 3.76 m/uL (3.80-5.40); WBC 9.4 k/uL (3.8-10.6)
[2021-02-11 04:02] LABS: Prothrombin Time 10.4 sec (9.0-12.0)
[2021-02-11 04:24] LABS: ALT 16 U/L (4-34); AST 18 U/L (14-36); African American GFR (CKD) >90 (>60 ml/min/1.73 sqM); Albumin 3.4 g/dL (3.5-5.0); Alkaline Phosphatase 54 U/L (38-126); Anion Gap 6 mmol/L; Blood Urea Nitrogen 16 mg/dL (7-17); Calcium 8.5 mg/dL (8.4-10.2); Carbon Dioxide 25 mmol/L (22-30); Chloride 106 mmol/L (98-107); Glucose 127 mg/dL (74-99); Magnesium 1.8 mg/dL (1.6-2.3); Non-African American GFR(CKD) >90 (>60 ml/min/1.73 sqM); Potassium 4.4 mmol/L (3.5-5.1); Sodium 137 mmol/L (137-145); Total Bilirubin 0.4 mg/dL (0.2-1.3); Total Protein 5.6 g/dL (6.3-8.2)
[2021-02-11] MEDS: PANTOPRAZOLE 40 MG/10 ML VIAL IV SCH (08:22)
[2021-02-11] MEDS: SODIUM CHLORIDE 0.9% 1,000 ML IV SCH ×2 (11:53→18:14)
[2021-02-11] MEDS ORDERED: ONDANSETRON 4 MG/2 ML VIAL IVP ONE (12:13)
[2021-02-11] MEDS ORDERED: IV FLUID CONTINUATION 900 ML IV ONE (12:13)
--- NOTE | 2021-02-11 13:02 | P.HPOR ---
History of Present Illness H&P Date: 02/11/21 This is a 65-year-old female who was transferred from [facility] emergency room after sustaining a periprosthetic fracture of the left distal femur. Patient states that she was working outside with her loading wood onto a flatbed trailer when a board broke and her left leg fell through the trailer. Patient is seen and evaluated at bedside today with Dr. Benson South. Patient does admit to pain in the left lower extremity. Patient has a history of left total knee arthroplasty [place] [address] Benson South. Patient's past medical history is significant for GERD. Patient denies any fever/chills, numbness, weakness, tingling, abdominal pain, shortness of breath or chest pain. Review of Systems See HPI. Past Medical History Past Medical History: GERD/Reflux, Skin Disorder Additional Past Medical History / Comment(s): RASH RIGHT ANKLE History of Any Multi-Drug Resistant Organisms: None Reported Past Surgical History: Orthopedic Surgery Additional Past Surgical History / Comment(s): lt meniscus repair,colonoscopy, L knee replacement July 2018 Past Anesthesia/Blood Transfusion Reactions: No Reported Reaction Additional Past Anesthesia/Blood Transfusion Reaction / Comment(s): SON-C OMBATIVE Past Psychological History: No Psychological Hx Reported Smoking Status: Former smoker Past Alcohol Use History: Occasional Additional Past Alcohol Use History / Comment(s): quit smoking ,started smoking at age 16, 1 ppd Past Drug Use History: None Reported - Past Family History Mother Family Medical History: No Reported History Father Family Medical History: COPD Medications and Allergies Home Medications Medication Instructions Recorded Confirmed Type Calcium Carbonate/Vitamin D3 1 tab PO DAILY 07/26/18 02/10/21 History [Calcium 600-Vit D3 400 Caplet] Lansoprazole [Prevacid] 30 mg PO DAILY 07/26/18 02/11/21 History Estradiol Cream [Estrace Cream 1 applic VAGINAL SUWE 08/08/18 02/11/21 History 0.01%] Dicyclomine [Bentyl] 10 mg PO QID PRN 02/10/21 02/11/21 History Allergies Allergy/AdvReac Type Severity Reaction Status Date / Time animal dander Allergy Unknown Headache, Verified 02/11/21 12:05 Runny Nose mold Allergy Unknown Headache, Verified 02/11/21 12:05 Runny nose amoxicillin Allergy DIZZY, DID Verified 02/11/21 12:05 NOT FEEL RIGHT. Penicillins Allergy Unknown Verified 02/11/21 12:05 Physical Examination On exam patient is lying comfortably in bed in no acute distress. There is a knee immobilizer in place to the left lower extremity. Left lower extremity is warm and well perfused. Sensation intact. Neurovascular status and circulatory status are intact. Exams of the head, neck, bilateral upper extremities and the right lower extremity are within normal limits. Results X-rays and a CT of the left knee reveal a comminuted periprosthetic fracture of the left distal femur. No dislocation. - Labs Labs: Abnormal Lab Results - Last 24 Hours (Table) 02/11/21 02/11/21 Range/Units 03:17 03:17 RBC 3.76 L (3.80-5.40) m/uL Glucose 127 H (74-99) mg/dL Total Protein 5.6 L (6.3-8.2) g/dL Albumin 3.4 L (3.5-5.0) g/dL H & H 02/11/21 Range/Units 03:17 Hgb 11.7 (11.4-16.0) gm/dL Hct 36.2 (34.0-46.0) % Coagulation 02/11/21 Range/Units 03:17 INR 1.0 (<1.2) Result Diagrams: 02/11/21 03:17 02/11/21 03:17 Assessment and Plan (1) History of total left knee replacement Current Visit: Yes Status: Acute Code(s): Z96.652 - PRESENCE OF LEFT ARTIFICIAL KNEE JOINT SNOMED Code(s): 9628849268012 (2) Fall Current Visit: Yes Status: Acute Code(s): W19.XXXA - UNSPECIFIED FALL, INITIAL ENCOUNTER SNOMED Code(s): 2749025 (3) Periprosthetic fracture around internal prosthetic right knee joint Current Visit: Yes Status: Acute Code(s): M97.11XA - PERIPROSTH FRACTURE AROUND INTERNAL PROSTH R KNEE JT, INIT SNOMED Code(s): 046518318 Plan: 1. Patient is to be NPO. 2. Continue pain control. 3. Maintain knee immobilizer to the left lower extremity. 4. Planning for ORIF of the left distal femur fracture later today pending medical clearance and patient consent.
[2021-02-11] MEDS ORDERED: NA PHOS,M-B/NA PHOS,DI-BA 133 ML ENEMA RECTAL PRN (13:04)
[2021-02-11] MEDS ORDERED: MAGNESIUM HYDROXIDE 2,400 MG/10 ML CUP PO PRN (13:04)
[2021-02-11] MEDS ORDERED: hydrOXYzine pamoate 25 MG CAP PO PRN (13:04)
[2021-02-11] MEDS ORDERED: HYDROmorphone 0.2 MG/1 ML SYRINGE IVP PRN (13:04)
[2021-02-11] MEDS ORDERED: HYDROmorphone 0.5 MG/0.5 ML SYRINGE IVP PRN (13:04)
[2021-02-11] MEDS ORDERED: NALOXONE 0.4 MG/ML 1 ML VIAL IV PRN (13:04)
[2021-02-11] MEDS ORDERED: bisacodyL 10 MG SUPP RECTAL PRN (13:04)
[2021-02-11] MEDS ORDERED: HYDROcodone/APAP 7.5-325MG 1 EACH TAB PO PRN (13:07)
[2021-02-11] MEDS ORDERED: MIDAZOLAM 2 MG/2 ML VIAL ONE (13:19)
[2021-02-11] MEDS ORDERED: HYDROmorphone (PF) 1 MG/ML ONE (13:19)
[2021-02-11] MEDS ORDERED: PROPOFOL 10 MG/ML 20 ML VIAL IV ONE (13:19)
[2021-02-11] MEDS ORDERED: fentaNYL (PF) 50 MCG/ML 2 ML AMP ONE (13:19)
[2021-02-11] MEDS ORDERED: KETAMINE 10 MG/ML 20 ML VIAL ONE (13:19)
[2021-02-11] MEDS ORDERED: ceFAZolin 1,000 MG in SODIUM CHLORIDE 0.9% 1,000 ML IRRIGATION ONE (14:03)
[2021-02-11] MEDS ORDERED: LACTATED RINGERS 1,000 ML IV ONE (14:21)
--- NOTE | 2021-02-11 14:38 | P.CONS ---
History of Present Illness - Reason for Consult Consult date: 02/11/21 medical management - Chief Complaint left leg injury/pain - History of Present Illness 65-year-old female patient, history of gastroesophageal reflux disease, left knee replacement in July 2018, transferred to our facility from [facility] emergency where patient presented after sustaining periprosthetic fracture of left distal femur; Patient reports she was working outside with her loading wood onto a flatbed trailer when a board broke and her left leg fell through the trailer. Patient does c/o of pain left lower extremity patient denies any complaint of chest pain or shortness of breath patient has been admitted to hospital for further orthopedic evaluation Review of Systems REVIEW OF SYSTEMS: CONSTITUTIONAL: No fever, no malaise, no fatigue. HEENT: No recent visual problems or hearing problems. Denied any sore throat. CARDIOVASCULAR: No chest pain, orthopnea, PND, no palpitations, no syncope. PULMONARY: No shortness of breath, no cough, no hemoptysis. GASTROINTESTINAL: No diarrhea, no nausea, no vomiting, no abdominal pain. NEUROLOGICAL: No headaches, no weakness, no numbness. HEMATOLOGICAL: Denies any bleeding or petechiae. GENITOURINARY: Denies any burning micturition, frequency, or urgency. MUSCULOSKELETAL/RHEUMATOLOGICAL: leg pain as indicated above ENDOCRINE: Denies any polyuria or polydipsia. The rest of the 14-point review of systems is negative. Past Medical History Past Medical History: GERD/Reflux, Skin Disorder Additional Past Medical History / Comment(s): RASH RIGHT ANKLE History of Any Multi-Drug Resistant Organisms: None Reported Past Surgical History: Orthopedic Surgery Additional Past Surgical History / Comment(s): lt meniscus repair,colonoscopy, L knee replacement July 2018 Past Anesthesia/Blood Transfusion Reactions: No Reported Reaction Additional Past Anesthesia/Blood Transfusion Reaction / Comm: SON-COMBATIVE Past Psychological History: No Psychological Hx Reported Smoking Status: Former smoker Past Alcohol Use History: Occasional Additional Past Alcohol Use History / Comment(s): quit smoking ,started smoking at age 16, 1 ppd Past Drug Use History: None Reported - Past Family History Mother Family Medical History: No Reported History Father Family Medical History: COPD Medications and Allergies Home Medications Medication Instructions Recorded Confirmed Type Calcium Carbonate/Vitamin D3 1 tab PO DAILY 07/26/18 02/10/21 History [Calcium 600-Vit D3 400 Caplet] Lansoprazole [Prevacid] 30 mg PO DAILY 07/26/18 02/11/21 History Estradiol Cream [Estrace Cream 1 applic VAGINAL SUWE 08/08/18 02/11/21 History 0.01%] Dicyclomine [Bentyl] 10 mg PO QID PRN 02/10/21 02/11/21 History HYDROcodone/APAP 7.5-325MG [[place] 1 - 2 tab PO Q6H PRN #32 tab 02/11/21 Rx 7.5-325] Ondansetron Odt [Zofran Odt] 1 tab PO Q8HR PRN #10 tab 02/11/21 Rx Rivaroxaban [Xarelto] 10 mg PO DAILY #30 tab 02/11/21 Rx Sennosides [Senokot] 2 tab PO DAILY PRN #60 tablet 02/11/21 Rx Allergies Allergy/AdvReac Type Severity Reaction Status Date / Time animal dander Allergy Unknown Headache, Verified 02/11/21 12:05 Runny Nose mold Allergy Unknown Headache, Verified 02/11/21 12:05 Runny nose amoxicillin Allergy DIZZY, DID Verified 02/11/21 12:05 NOT FEEL RIGHT. Penicillins Allergy Unknown Verified 02/11/21 12:05 Physical Exam Vitals: Vital Signs Temp Pulse Pulse Resp BP BP Pulse Ox 02/11/21 12:01 97.1 F L 79 16 126/60 97 02/11/21 08:00 98.8 F 64 18 114/68 94 L 02/11/21 04:21 81 18 118/65 96 02/10/21 21:56 98.8 F 82 17 134/79 99 Intake and Output 02/10/21 02/11/21 02/11/21 22:59 06:59 14:59 Other: Voiding Method Bedpan Weight 76.204 kg 76.204 kg PHYSICAL EXAMINATION: GENERAL: The patient is alert and oriented x3, not in any acute distress. Well developed, well nourished. HEENT: Pupils are round and equally reacting to light. EOMI. No scleral icterus. No conjunctival pallor. Normocephalic, atraumatic. No pharyngeal erythema. No thyromegaly. CARDIOVASCULAR: S1 and S2 present. No murmurs, rubs, or gallops. PULMONARY: Chest is clear to auscultation, no wheezing or crackles. ABDOMEN: Soft, nontender, nondistended, normoactive bowel sounds. No palpable organomegaly. MUSCULOSKELETAL: No joint swelling or deformity. EXTREMITIES: patient does have a knee immobilizer in place; left lower extremity is warm and pulses are palpable NEUROLOGICAL: Gross neurological examination did not reveal any focal deficits. SKIN: No rashes. Results CBC & Chem 7: 02/11/21 03:17 02/11/21 03:17 Labs: Abnormal Lab Results - Last 24 Hours (Table) 02/11/21 02/11/21 Range/Units 03:17 03:17 RBC 3.76 L (3.80-5.40) m/uL Glucose 127 H (74-99) mg/dL Total Protein 5.6 L (6.3-8.2) g/dL Albumin 3.4 L (3.5-5.0) g/dL Assessment and Plan Assessment: 1. Comminuted periprosthetic fracture of the left distal femur - patient has been evaluated by orthopedic surgery with plans for OR for ORIF - Patient is medically cleared to proceed with OR - pain controlled with IV Dilaudid 2. Mechanical fall; X-rays and a CT of the left knee reveal a comminuted periprosthetic fracture of the left distal femur. patient to be kept nothing by mouth and is to be taken to OR 3. Gastroesophageal reflux disease DVT prophylaxis; per discretion of primary team CODE STATUS; full code
--- NOTE | 2021-02-11 15:51 | P.OP ---
Date of Procedure: 02/11/21 Preoperative Diagnosis: Comminuted periprosthetic fracture left distal femur Postoperative Diagnosis: Comminuted periprosthetic fracture left distal femur Procedure(s) Performed: Open reduction and internal fixation left distal femur comminuted periprosthetic fracture Implants: [employer] periarticular lateral distal femoral plate with locking and nonlocking screws Anesthesia: spinal Surgeon: Benson South Goring Cutter #1: Maryann Aguiar Estimated Blood Loss (ml): 100 Pathology: none sent Condition: stable Disposition: PACU Indications for Procedure: This is a 65-year-old female that had a left total knee arthroplasty performed approximately 2 years ago. Her knee was functioning well and having no problems. Yesterday she was on a flatbed trailer one of the boards broke and she fell through. She sustained a comminuted periprosthetic fracture of her left distal femur just above her knee replacement. After discussing the surgical nonsurgical treatment options at length I've recommended open reduction and internal fixation informed consent was obtained. Operative Findings: The operative findings are consistent with a comminuted periprosthetic fracture of the left distal femur Description of Procedure: The patient was seen in the preoperative area, the consent was reviewed, and the operative site was marked for skin marker. The patient was then brought to the operating room and given a spinal anesthetic by the anesthesia department. She is given preoperative intravenous antibiotics. Her left lower extremity was then prepped and draped in usual sterile fashion. A universal timeout was then performed confirming the patient's name, surgical site, ALLERGIES, and consent. The procedure began by evaluating the fracture fluoroscopy. Next, a lateral incision was made over the distal femur over the lateral epicondyle. The distal femur was then exposed just enough in order to insert the lateral para-articular plate submuscularly along the bone. AP and lateral x-rays confirmed reduction of the fracture and placement of the plate. Screws were placed provisionally both proximally and distally in order to hold the plate in place. Should be noted the fracture was very comminuted and the reduction was hard to maintain throughout the procedure. After the reduction was made and the plate was fixed both proximally and distally with locking s crews. Final x-rays were obtained fluoroscopy-[place], show the fracture reduced in good position alignment as well as good position alignment of the plate and screws. The wounds were irrigated closed with 0 Vicryl for the fascia followed by 2-0 Vicryl for the subcu tissues tissue and rosie for the skin. A dressing was applied and patient was placed in the immobilizer and transferred recovery room in stable condition. The perioperative assistant Maryann Sosa required due the complexity of surgery the need for a skilled surgical corsetier
--- NOTE | 2021-02-11 16:39 | XR ---
Limited left knee HISTORY: Postop Frontal lateral views of the left knee submitted. Patient is status post open reduction internal fixation for comminuted distal left femoral fracture. Sideplate and screws are present across the distal femur. There is lucency in the soft tissues. Overl sherie rosie are present. Persistent mild displacement of distal left femoral fragments. Prior post l eft knee arthroplasty change is present. IMPRESSION: Orthopedic follow-up.
[2021-02-11] MEDS: HYDROcodone/APAP 7.5-325MG 1 EACH TAB PO PRN ×2 (18:14→23:11)
[2021-02-11] MEDS: HYDROmorphone 1 MG/ML 1 ML SYRINGE IVP PRN (19:35)
[2021-02-11] MEDS: SENNOSIDES-DOCUSATE SODIUM 1 EACH TAB PO SCH (22:05)
--- NOTE | 2021-02-12 01:34 | XR ---
EXAMINATION TYPE: XR femur LT DATE OF EXAM: 02/11/2021 COMPARISON: NONE HISTORY: Postop TECHNIQUE: 3 views FINDINGS: 3 fluoroscopic images were obtained at show plate with screws fixing the supracondylar frac ture of the distal femur. Fragments are in good anatomic position. IMPRESSION: No complicating process seen.
[2021-02-12] MEDS: HYDROmorphone 1 MG/ML 1 ML SYRINGE IVP PRN (04:25)
[2021-02-12] MEDS: SODIUM CHLORIDE 0.9% 1,000 ML IV SCH ×2 (04:26→20:35)
[2021-02-12] MEDS: HYDROcodone/APAP 7.5-325MG 1 EACH TAB PO PRN ×3 (06:23→16:49)
[2021-02-12] MEDS: PANTOPRAZOLE 40 MG/10 ML VIAL IV SCH (08:13)
[2021-02-12] MEDS: RIVAROXABAN 10 MG TAB PO SCH (08:13)
--- NOTE | 2021-02-12 08:51 | FL ---
Fluoroscopy HISTORY: Pain 2 minutes 14 seconds fluoroscopy time supplied to the referring clinician. 3 intraoperative C-arm im ages document the procedure. See dictated report from orthopedic surgery.
[2021-02-12 10:07] LABS: Basophils # (A) 0.02 X 10*3/uL (0.00-0.10); Basophils % (A) 0.2 %; Eosinophils # (A) 0.02 X 10*3/uL (0.04-0.35); Eosinophils % (A) 0.2 %; HCT 32.2 % (37.2-46.3); HGB 10.1 g/dL (12.0-15.0); Lymphocytes # (A) 1.11 X 10*3/uL (0.90-5.00); Lymphocytes % (A) 10.2 %; MCH 30.2 pg (27.0-32.0); MCHC 31.4 g/dL (32.0-37.0); MCV 96.4 fL (80.0-97.0); Monocytes # (A) 1.35 X 10*3/uL (0.20-1.00); Monocytes % (A) 12.4 %; Neutrophils % (A) 76.5 %; Platelet Count 186 X 10*3/uL (140-440); RBC 3.34 X 10*6/uL (4.10-5.20); RDW 13.4 % (11.5-14.5); WBC 10.85 X 10*3/uL (4.50-10.00)
[2021-02-12 10:38] LABS: African American GFR (CKD) 111.6 (60.0-200.0); Anion Gap 12.1 mmol/L (4.00-12.00); BUN/Creat Ratio 15.67 Ratio (12.00-20.00); Blood Urea Nitrogen 9.4 mg/dL (9.0-27.0); Calcium 8.2 mg/dL (8.7-10.3); Carbon Dioxide 23.9 mmol/L (21.6-31.8); Non-African American GFR(CKD) 96.3 (60.0-200.0); Potassium 4.2 mmol/L (3.5-5.5)
--- NOTE | 2021-02-12 10:43 | P.PN ---
Subjective Progress Note Date: 02/12/21 Principal diagnosis: Periprosthetic fracture left distal femur. Postop open reduction internal fixation periprosthetic fracture left distal femur. This is a 65-year-old female who is status post open reduction internal fixation of the left distal femur periprosthetic fracture. She has no new complaints or concerns today. Vital signs are stable. Objective - Vital Signs Vital signs: Vital Signs Temp 98.8 F 02/12/21 08:00 Pulse 122 H 02/12/21 08:00 Resp 18 02/12/21 08:00 BP 117/63 02/12/21 08:00 Pulse Ox 92 L 02/12/21 08:00 Intake & Output 02/11/21 02/12/21 02/12/21 18:59 06:59 18:59 Intake Total 2041 Output Total 100 Balance 1941 Weight 76.204 kg Intake: IV 1801 Oral 240 Output: Estimated Blood Loss 100 Other: Voiding Method Bedpan Bedpan Bedpan # Voids 0 2 # Bowel Movements 0 - Exam This is a pleasant 65-year-old female in no acute distress. She is alert and oriented 3. Exam of the left lower extremity reveals that her dressing is clean, dry and intact. She has full foot and ankle motion without difficulty or pain. Neurovascular status to the lower extremity is intact. - Labs CBC & Chem 7: 02/12/21 06:30 02/12/21 06:30 Labs: Abnormal Lab Results - Last 24 Hours (Table) 02/12/21 02/12/21 Range/Units 06:30 06:30 WBC 10.85 H (4.50-10.00) X 10*3/uL RBC 3.34 L (4.10-5.20) X 10*6/uL Hgb 10.1 L (12.0-15.0) g/dL Hct 32.2 L (37.2-46.3) % MCHC 31.4 L (32.0-37.0) g/dL Immature Gran # 0.05 H (0.00-0.04) X 10*3/uL Neutrophils # 8.30 H (1.80-7.70) X 10*3/uL Monocytes # 1.35 H (0.20-1.00) X 10*3/uL Eosinophils # 0.02 L (0.04-0.35) X 10*3/uL Anion Gap 12.10 H (4.00-12.00) mmol/L Calcium 8.2 L (8.7-10.3) mg/dL Assessment and Plan (1) S/P ORIF (open reduction internal fixation) fracture Current Visit: Yes Status: Acute Code(s): Z98.890 - OTHER SPECIFIED POSTPROCEDURAL STATES; Z87.81 - PERSONAL HISTORY OF (HEALED) TRAUMATIC FRACTURE SNOMED Code(s): 242124206 (2) History of total left knee replacement Current Visit: Yes Status: Acute Code(s): Z96.652 - PRESENCE OF LEFT ARTIFICIAL KNEE JOINT SNOMED Code(s): 3852267738559 (3) Periprosthetic fracture around internal prosthetic right knee joint Current Visit: Yes Status: Acute Code(s): M97.11XA - PERIPROSTH FRACTURE AROUND INTERNAL PROSTH R KNEE JT, INIT SNOMED Code(s): 348280282 Plan: The clinical findings are discussed with the patient. We will continue with physical therapy. She is planning discharge to home with home care in the next day or 2 if doing well with PT.
[2021-02-12] MEDS: SENNOSIDES-DOCUSATE SODIUM 1 EACH TAB PO SCH (20:35)
--- NOTE | 2021-02-12 21:50 | P.PN ---
Subjective Progress Note Date: 02/12/21 65-year-old female patient, history of gastroesophageal reflux disease, left knee replacement in July 2018, transferred to our facility from [facility] emergency where patient presented after sustaining periprosthetic fracture of left distal femur; Patient reports she was working outside with her loading wood onto a flatbed trailer when a board broke and her left leg fell through the trailer. Patient does c/o of pain left lower extremity patient denies any complaint of chest pain or shortness of breath patient has been admitted to hospital for further orthopedic evaluation Objective - Vital Signs Vital signs: Vital Signs Temp 98.8 F 02/12/21 08:00 Pulse 122 H 02/12/21 08:00 Resp 18 02/12/21 08:00 BP 117/63 02/12/21 08:00 Pulse Ox 92 L 02/12/21 08:00 Intake & Output 02/11/21 02/12/21 02/12/21 18:59 06:59 18:59 Intake Total 2041 Output Total 100 Balance 1941 Weight 76.204 kg Intake: IV 1801 Oral 240 Output: Estimated Blood Loss 100 Other: Voiding Method Bedpan Bedpan Bedpan # Voids 0 2 # Bowel Movements 0 - Exam PHYSICAL EXAMINATION: GENERAL: The patient is alert and oriented x3, not in any acute distress. Well developed, well nourished. HEENT: Pupils are round and equally reacting to light. EOMI. No scleral icterus. No conjunctival pallor. Normocephalic, atraumatic. No pharyngeal erythema. No thyromegaly. CARDIOVASCULAR: S1 and S2 present. No murmurs, rubs, or gallops. PULMONARY: Chest is clear to auscultation, no wheezing or crackles. ABDOMEN: Soft, nontender, nondistended, normoactive bowel sounds. No palpable organomegaly. MUSCULOSKELETAL: No joint swelling or deformity. EXTREMITIES: patient does have a knee immobilizer in place; left lower extremity is warm and pulses are palpable NEUROLOGICAL: Gross neurological examination did not reveal any focal deficits. SKIN: No rashes. - Labs CBC & Chem 7: 02/12/21 06:30 02/12/21 06:30 Labs: Abnormal Lab Results - Last 24 Hours (Table) 02/12/21 02/12/21 Range/Units 06:30 06:30 WBC 10.85 H (4.50-10.00) X 10*3/uL RBC 3.34 L (4.10-5.20) X 10*6/uL Hgb 10.1 L (12.0-15.0) g/dL Hct 32.2 L (37.2-46.3) % MCHC 31.4 L (32.0-37.0) g/dL Immature Gran # 0.05 H (0.00-0.04) X 10*3/uL Neutrophils # 8.30 H (1.80-7.70) X 10*3/uL Monocytes # 1.35 H (0.20-1.00) X 10*3/uL Eosinophils # 0.02 L (0.04-0.35) X 10*3/uL Anion Gap 12.10 H (4.00-12.00) mmol/L Calcium 8.2 L (8.7-10.3) mg/dL Assessment and Plan Assessment: 1. Comminuted periprosthetic fracture of the left distal femur - patient has been evaluated by orthopedic surgery with plans for OR for ORIF - Patient is medically cleared to proceed with OR - pain controlled with IV Dilaudid 2. Mechanical fall; X-rays and a CT of the left knee reveal a comminuted periprosthetic fracture of the left distal femur. patient to be kept nothing by mouth and is to be taken to OR 3. Gastroesophageal reflux disease DVT prophylaxis; per discretion of primary team CODE STATUS; full code
[2021-02-13] MEDS: HYDROcodone/APAP 7.5-325MG 1 EACH TAB PO PRN ×2 (00:06→08:41)
[2021-02-13] MEDS ORDERED: PANTOPRAZOLE 40 MG TABLET PO SCH (07:30)
[2021-02-13 08:30] VITALS: BP 125/68; PULSE 97; RESP 16; TEMP 100.2
[2021-02-13] MEDS: RIVAROXABAN 10 MG TAB PO SCH (08:42)
--- NOTE | 2021-02-13 10:19 | P.DS ---
Providers Date of admission: 02/12/21 14:33 Expected date of discharge: 02/13/21 Attending physician: Benson South Consults: 02/10/21 22:48 Consult Physician Routine Consulting Provider: Jen Alves Consult Reason/Comments: medSebreerozina Do you want consulting provider notified?: Yes Primary care physician: Sussy Cortez - Discharge Diagnosis(es) (1) History of total left knee replacement Current Visit: Yes Status: Acute (2) Fall Current Visit: Yes Status: Acute (3) Periprosthetic fracture around internal prosthetic right knee joint Current Visit: Yes Status: Acute Hospital Course: This is a 65-year-old female who sustained a fracture of her left distal femur after a fall on 02/10/2021. Patient presented to [facility] emergency room where x-rays revealed a comminuted periprosthetic fracture of the left distal femur. Patient was transferred to [facility] for further orthopedic management. After discussion and consideration patient elects to proceed with open reduction and internal fixation left distal femur comminuted periprosthetic fracture. The patient is seen preoperatively by Dr. South and cleared for surgery by internal medicine. Patient is admitted to [facility] on 02/10/2021 and open reduction and internal fixation left distal femur comminuted periprosthetic fracture was performed on 02/11/2021. The procedure was performed without complication or sequelae. The patient is doing well postoperatively. Labs and vital signs are stable on day of discharge. On day of discharge patient's incisions are healing well. There is minimal erythema. There is no drainage noted at this time. There is minimal soft tissue swelling to the hip and thigh. Patient has full foot and ankle motion without difficulty or pain. Neurovascular status to the left lower extremity is intact. Patient is discharged home in good condition. Please see med rec for accurate list of home medications. Patient Condition at Discharge: Good Plan - Discharge Summary New Discharge Prescriptions: New HYDROcodone/APAP 7.5-325MG [[place] 7.5-325] 1 - 2 tab PO Q6H PRN #32 tab PRN Reason: Pain Sennosides [Senokot] 2 tab PO DAILY PRN #60 tablet PRN Reason: Constipation Rivaroxaban [Xarelto] 10 mg PO DAILY #30 tab Ondansetron Odt [Zofran Odt] 1 tab PO Q8HR PRN #10 tab PRN Reason: Nausea No Action Lansoprazole [Prevacid] 30 mg PO DAILY Calcium Carbonate/Vitamin D3 [Calcium 600-Vit D3 400 Caplet] 1 tab PO DAILY Estradiol Cream [Estrace Cream 0.01%] 1 applic VAGINAL SUWE Dicyclomine [Bentyl] 10 mg PO QID PRN PRN Reason: Gi Upset Discharge Medication List Calcium Carbonate/Vitamin D3 [Calcium 600-Vit D3 400 Caplet] 1 tab PO DAILY 07/26/18 [History] Lansoprazole [Prevacid] 30 mg PO DAILY 07/26/18 [History] Estradiol Cream [Estrace Cream 0.01%] 1 applic VAGINAL SUWE 08/08/18 [History] Dicyclomine [Bentyl] 10 mg PO QID PRN 02/10/21 [History] HYDROcodone/APAP 7.5-325MG [[place] 7.5-325] 1 - 2 tab PO Q6H PRN #32 tab 02/11/21 [Rx] Ondansetron Odt [Zofran Odt] 1 tab PO Q8HR PRN #10 tab 02/11/21 [Rx] Rivaroxaban [Xarelto] 10 mg PO DAILY #30 tab 02/11/21 [Rx] Sennosides [Senokot] 2 tab PO DAILY PRN #60 tablet 02/11/21 [Rx] Follow up Appointment(s)/Referral(s): [facility], [NON-STAFF] - Sussy Cortez MD [Primary Care Provider] - 1-2 days Activity/Diet/Wound Care/Special Instructions: Strictly nonweightbearing to the left lower extremity. Maintain knee immobilizer to left lower extremity. Daily dressing changes. May shower in 24-48 hours if no drainage from incisions. Please take Xarelto as prescribed to help prevent blood clots. Please follow up with [facility] and call with any questions or concerns, . Patient requires a wheelchair to complete her ADLS which are unable to be done with a cane or walker due to her nonweightbearing status and right knee periprosthetic fracture. Pt is able to self propel. Patient will also require a bedside commode because she will be room confined due to the periprosthetic fracture and nonweightbearing status. Discharge Disposition: HOME WITH HOME HEALTH SERVICES
[2021-02-13] MEDS: SODIUM CHLORIDE 0.9% 1,000 ML IV SCH (10:33)
--- NOTE | 2021-02-13 10:45 | CDI ---
Documentation Clarification Form Date: 02/13/2021 09:54:53 AM From: Kristyn Martinez RN CCDS Admit Date: 02/12/2021 02:33:00 PM Patient Name: Tamra Li Visit Number: [id number] Discharge Date: ATTENTION: The Clinical Documentation Specialists (CDI) and [facility] Coding Staff appreciate your assistance in clarifying documentation. Please respond to the clarification below the line at the bottom and electronically sign. The CDI & [facility] Coding staff will review the response and follow-up if needed. Please note: Queries are made part of the Legal Health Record. If you have any questions, please contact the author of this message via ITS. Dr. Benson South Conflicting documentation has been found in the medical record. As attending physician, please provide clarification. Periprosthetic fracture around internal prosthetic right knee joint, H&P, 02/11. Periprosthetic fracture of her left distal femur, Procedure note 02/11. History/Risk Factors: 65-year-old female presents to the ED as a transfer from [facility] after sustaining a periprosthetic fracture of the left distal femur. Medical history: Left total knee arthroplasty in 2019. H&P, 02/11. Clinical Indicators: CT Left Knee: 02/10 Comminuted severely impacted supracondylar fracture of the distal femur. No dislocation. Medicine consult: 02/11 Comminuted periprosthetic fracture of the left distal femur. Treatment: Procedure 02/11 Open reduction and internal fixation left distal comminuted periprosthetic fracture. Please clarify which diagnosis is most appropriate: [ ] Periprosthetic fracture left distal femur [ ] Periprosthetic fracture right knee joint [ ] Other (please specify) [ ] Unable to determine (Template Last Revised: June 2020) Periprosthetic fracture left distal femur is correct MTDD
== END 2021-02-13 12:38 | disposition home health service (06) | DRG 481 ==
LOC: EC 21:52 → 4SSUR 22:48 → OBSVTOIN 02-12 14:33
PROVIDERS: ADMIT Orthopaedic Surgery; ATTEND Orthopaedic Surgery
PROC: 0QSC04Z Reposition Left Lower Femur with Internal Fixation Device, Open Approach (ICD-10-PCS; principal; 2021-02-12)
PROC: 2W3RX1Z Immobilization of Left Lower Leg using Splint (ICD-10-PCS; 2021-02-12)
PROC: 8E0YXBG Computer Assisted Procedure of Lower Extremity, With Computerized Tomography (ICD-10-PCS; 2021-02-12)
DX: S72.492A Other fracture of lower end of left femur, initial encounter for closed fracture (principal); M97.12XA Periprosthetic fracture around internal prosthetic left knee joint, initial encounter; K21.9 Gastro-esophageal reflux disease without esophagitis; Z20.822 Contact with and (suspected) exposure to COVID-19; W18.30XA Fall on same level, unspecified, initial encounter; Z79.01 Long term (current) use of anticoagulants; R29.6 Repeated falls; J30.81 Allergic rhinitis due to animal (cat) (dog) hair and dander; J30.89 Other allergic rhinitis; Z79.82 Long term (current) use of aspirin; Z87.891 Personal history of nicotine dependence; Z96.652 Presence of left artificial knee joint; Z88.0 Allergy status to penicillin; Z88.1 Allergy status to other antibiotic agents; Z91.81 History of falling
CPT/HCPCS: 80048; 80053; 83735; 84100; 85025; 85610; 87635; 99284

== ENCOUNTER → 2021-05-30 | Outpatient (CLI) | payer BC ==
--- NOTE | 2021-06-02 09:49 | MM ---
Reason for exam: screening (asymptomatic). Last mammogram was performed 1 year ago. History: Patient is postmenopausal. Family history of breast cancer in paternal cousin at age 49. Took hormonal contraceptives for 10 years beginning at age 25. Physical Findings: A clinical breast exam by your physician is recommended on an annual basis and results should be correlated with mammographic findings. MG 3D Screening Mammo W/Cad Bilateral CC and MLO view(s) were taken. XCCL view(s) were taken of the right breast. Prior study comparison: May 29, 2020, bilateral MG 3d screening mammo w/cad. January 20, 2019, bilateral MG 3d screening mammo w/cad. The breast tissue is heterogeneously dense. This may lower the sensitivity of mammography. There is no discrete abnormality. No significant changes when compared with prior studies. ASSESSMENT: Negative, BI-RAD 1 RECOMMENDATION: Routine screening mammogram of both breasts in 1 year.
== END | disposition home or self-care (01) ==
LOC: RADMAMWWP 08:59
PROVIDERS: ATTEND Internal Medicine
DX: Z12.31 Encounter for screening mammogram for malignant neoplasm of breast (principal); Z78.0 Asymptomatic menopausal state; Z80.3 Family history of malignant neoplasm of breast
CPT/HCPCS: 77063; 77067

== ENCOUNTER → 2022-02-05 | Outpatient (CLI) | payer MEDICARE ==
--- NOTE | 2022-02-05 19:30 | BD ---
EXAMINATION TYPE: Axial Bone Density DATE OF EXAM: 02/05/2022 CLINICAL HISTORY: 66 year old Female. ICD-10 CODE: N95.8 MENOPAUSAL AND PERIMENOPAUSAL DISORDER Height: 62.5 Weight: 156.8 FRAX RISK QUESTIONS: Alcohol (3 or more units per day): NO Family History (Parent hip fracture): no Glucocorticoids (More than 3mos): no (Ex: prednisone, prednisolone, methylprednisolone, dexamethasone, and hydrocortisone). History of Fracture in Adulthood: yes Secondary Osteoporosis: 1. Type 1 Diabetes: no 2. Hyperthyroidism: no 3. Menopause before 45: no 4. Malnutrition: no 5. Chronic liver disease: no Rheumatoid Arthritis: no Current Tobacco Use: no RISK FACTORS HISTORY OF: Surgery to Spine/Hip(right/left)/Wrist (right/left): no Family History of Osteoporosis: no Active: yes Diet low in dairy products/other sources of calcium: yes Postmenopausal woman: yes Take estrogen and/or progesterone medications: yes How lon years Lost more than 2 inches in height since high school: no MEDICATIONS: Additional History: EXAM MEASUREMENTS: Bone mineral densitometry was performed using the [employer]. Bone mineral density as measured about the Lumbar spine is: ----- L1-L4(G/cm2): 1.180 T Score Values are as follows: ----- L1: -0.9 ----- L2: -0.9 ----- L3: 1.4 ----- L4: 0.2 ----- L1-L4: 0.0 Bone mineral density has: increased 2.6 %since study of: 12.28.2017 Bone mineral density about the R hip (g/cm2): 0.890 Bone mineral density about the L hip (g/cm2): 0.724 T Score values are as follows: -----R Neck: -1.1 -----L Neck: -2.3 -----R Total: -0.9 -----L Total: -2.1 Bone mineral density has: decreased -11.3 % since study of: 12.28.2017 FRAX%s: The graph provided illustrates a 19.4% chance for a major osteoporotic fx and a 3.6% chance f or the hips probability for fx in 10 years time. IMPRESSION: Osteopenia (T Score between -2.5 and -1). There is slightly increased risk of fracture and the patient may be considered for treatment. Re-Screen 2-5 years. NOTE: T-SCORE=SD OF THE YOUNG ADULT MEAN.
== END | disposition home or self-care (01) ==
LOC: RADBDWWP 10:29
PROVIDERS: ATTEND Internal Medicine
DX: M85.89 Other specified disorders of bone density and structure, multiple sites (principal); Z78.0 Asymptomatic menopausal state
CPT/HCPCS: 77080

== ENCOUNTER → 2023-06-07 | Outpatient (CLI) | payer MEDICARE ==
--- NOTE | 2023-06-08 09:17 | MM ---
Reason for Exam: Screening (asymptomatic). Last screening mammogram was performed 12 month(s) ago. Patient History: Menarche at age 18. First Full-Term at age 22. Postmenopausal. Hormonal Contraceptives, from age 25 until age 32. Paternal cousin had breast cancer, age 49. Risk Values: Kandi 5 year model risk: 1.4%. NCI Lifetime model risk: 4.9%. Prior Study Comparison: 05/29/2020 Bilateral Screening Mammogram, [facility]. 05/30/2021 Bilateral Screening Mammogram, [facility]. 06/04/2022 Bilateral MG 3D screening mammo w/cad, [facility]. Tissue Density: The breast tissue is heterogeneously dense. This may lower the sensitivity of mammography. Findings: Analyzed By CAD. There is no suspicious group of microcalcifications or new suspicious mass. Overall Assessment: Negative, BI-RAD 1 Management: Screening Mammogram of both breasts in [address] [facility] will attempt to contact patient to return for supplemental views and ultrasound if indicated. Patient should continue monthly self-breast exams. A clinical breast exam by your physician is recommended on an annual basis. This exam should not preclude additional follow-up of suspicious palpable abnormalities. Note on Kandi scores and lifetime risk: 1. A Kandi score greater than 3% is considered moderate risk. If this is the case, consider specialist referral to assess eligibility for a risk reducing agent. 2. If overall lifetime risk for the development of breast cancer is 20% or higher, the patient may qualify for future screening with alternating mammogram and breast MRI. Electronically signed and approved by: Yehuda Baldwin DO
== END | disposition home or self-care (01) ==
LOC: RADMAMWWP 08:10
PROVIDERS: ATTEND Obstetrics & Gynecology
DX: Z12.31 Encounter for screening mammogram for malignant neoplasm of breast (principal); Z78.0 Asymptomatic menopausal state; Z80.3 Family history of malignant neoplasm of breast
CPT/HCPCS: 77063; 77067

== ENCOUNTER → 2024-02-07 | Outpatient (CLI) | payer MEDICARE ==
--- NOTE | 2024-02-07 10:20 | BD ---
EXAMINATION TYPE: Axial Bone Density DATE OF EXAM: 02/07/2024 CLINICAL HISTORY: 68 years old Female. ICD-10 CODE: M81.0 AGE-RELATED OSTEOPOROSIS W/O CURRENT PATHO LO Height: 62" Weight: 158.3lbs FRAX RISK QUESTIONS: Alcohol (3 or more units per day): No Family History (Parent hip fracture): No Glucocorticoids (More than 3mos): No (Ex: prednisone, prednisolone, methylprednisolone, dexamethasone, and hydrocortisone). History of Fracture in Adulthood: Yes Secondary Osteoporosis: 1. Type 1 Diabetes: No 2. Hyperthyroidism: No 3. Menopause before 45: 64 4. Malnutrition: No 5. Chronic liver disease: No Rheumatoid Arthritis: No Current Tobacco Use: No RISK FACTORS HISTORY OF: Hip Fracture (Right/Left): No Spine Fracture: No History of Wrist Fracture: Bilateral wrists When: Several years ago, Surgery to Spine/Hip(right/left)/Wrist (right/left): No MEDICATIONS: Thyroid Medications: No Osteoporosis Medications: No EXAM MEASUREMENTS: Bone mineral densitometry was performed using the [employer]. Bone mineral density as measured about the Lumbar spine is: ----- L1-L4(G/cm2): 1.186 T Score Values are as follows: ----- L1: -1.2 ----- L2: -1.1 ----- L3: 1.5 ----- L4: 0.6 ----- L1-L4: 0.1 Z Score Values are as follows: ----- L1: 0.2 ----- L2: 0.3 ----- L3: 2.9 ----- L4: 2.0 ----- L1-L4: 1.5 Bone mineral density has: increased 0.5% since study of: 02/05/2022 Bone mineral density about the R hip (g/cm2): 0.922 Bone mineral density about the L hip (g/cm2): 0.800 T Score values are as follows: -----R Neck: -0.7 -----L Neck: -1.9 -----R Total: -0.7 -----L Total: -1.7 Z Score values are as follows: -----R Neck: 0.8 -----L Neck: -0.5 -----R Total: 0.5 -----L Total: -0.5 Bone mineral density has: increased 4.7% since study of: 02/05/2022 FRAX%s: The graph provided illustrates a 17.2% chance for a major osteoporotic fx and a 2.7% chance f or the hips probability for fx in 10 years time. IMPRESSION: Osteopenia (T Score between -2.5 and -1). There is slightly increased risk of fracture and the patient may be considered for treatment. Re-Screen 2-5 years. NOTE: T-SCORE=SD OF THE YOUNG ADULT MEAN. [facility], , 02/07/2024 10:17 AM
== END ==
LOC: RADBDWWP 07:44
PROVIDERS: ATTEND Obstetrics & Gynecology
DX: M81.0 Age-related osteoporosis without current pathological fracture
CPT/HCPCS: 77080